=== PATIENT | female | born 1965 | race Caucasian/White ===

== ENCOUNTER 2021-01-23 16:58 | Emergency (ER) | payer BC ==
[~2021-01-23] VITALS: Ht 157.5 cm; Wt 65.0 kg
[2021-01-23 18:50] VITALS: BP 127/59
== END 2021-01-23 18:50 | disposition left against medical advice (07) | DRG 556 ==
LOC: ED 16:58
DX: M25.531 Pain in right wrist (principal); F17.210 Nicotine dependence, cigarettes, uncomplicated; Z91.19 Patient's noncompliance with other medical treatment and regimen; Z98.84 Bariatric surgery status

== ENCOUNTER 2021-07-20 08:04 | Day surgery (SDC) | payer BC ==
[~2021-07-20] VITALS: Ht 157.5 cm; Wt 55.8 kg
[~2021-07-20 08:04] MED LIST: ALPRAZOLAM0.25 M1 PO; CARAFATE PO; GABAPENTIN300 M2 PO; OMEPRAZOLE DR40 MG PO
[2021-07-20 10:11] VITALS: BP 100/50
== END 2021-07-20 09:35 | disposition home or self-care (01) | DRG 395 ==
LOC: ORM 08:04
PROVIDERS: ATTEND Surgery
PROC: 0DJ08ZZ Inspection of Upper Intestinal Tract, Via Natural or Artificial Opening Endoscopic (ICD-10-PCS; principal; 2021-07-20)
DX: K95.89 Other complications of other bariatric procedure (principal); F17.200 Nicotine dependence, unspecified, uncomplicated; Y84.8 Other medical procedures as the cause of abnormal reaction of the patient, or of later complication, without mention of misadventure at the time of the procedure; Z98.84 Bariatric surgery status